=== PATIENT | female | born 1965 | race Caucasian/White ===

== ENCOUNTER 2022-04-09 14:10 | Outpatient (CLI) | payer OTHER | END 2022-04-09 14:23 | disposition home or self-care (01) | LOC: EDBD 14:10 → MAMO-SONO 14:10 | PROVIDERS: ATTEND Internal Medicine Hematology & Oncology | DX: C50.811 Malignant neoplasm of overlapping sites of right female breast (principal) ==

== ENCOUNTER 2022-04-10 06:39 | Outpatient (CLI) | payer OTHER | END 2022-04-10 06:40 | disposition home or self-care (01) | LOC: LAB 06:39 | PROVIDERS: ATTEND Internal Medicine Hematology & Oncology | DX: D50.8 Other iron deficiency anemias (principal); I10 Essential (primary) hypertension; R74.02 Elevation of levels of lactic acid dehydrogenase [LDH]; K76.89 Other specified diseases of liver; E55.9 Vitamin D deficiency, unspecified; E78.2 Mixed hyperlipidemia; E03.8 Other specified hypothyroidism; C50.919 Malignant neoplasm of unspecified site of unspecified female breast; R97.8 Other abnormal tumor markers; R97.0 Elevated carcinoembryonic antigen [CEA]; Z80.3 Family history of malignant neoplasm of breast; Z80.8 Family history of malignant neoplasm of other organs or systems; Z80.7 Family history of other malignant neoplasms of lymphoid, hematopoietic and related tissues; E78.5 Hyperlipidemia, unspecified; E03.9 Hypothyroidism, unspecified; C50.211 Malignant neoplasm of upper-inner quadrant of right female breast; R19.5 Other fecal abnormalities; M54.2 Cervicalgia; M54.51 Vertebrogenic low back pain; M54.6 Pain in thoracic spine; M25.559 Pain in unspecified hip ==

== ENCOUNTER → 2022-04-11 09:59 | Outpatient (CLI) | payer OTHER | END | disposition home or self-care (01) | LOC: LAB 09:59 | PROVIDERS: ATTEND Internal Medicine Hematology & Oncology | DX: D50.8 Other iron deficiency anemias (principal); R19.5 Other fecal abnormalities ==

== ENCOUNTER 2022-05-29 11:38 | Outpatient (CLI) | payer OTHER | END 2022-05-29 11:40 | disposition home or self-care (01) | LOC: LAB 11:38 | PROVIDERS: ATTEND Preventive Medicine Occupational Medicine | DX: U07.1 COVID-19 (principal) ==

== ENCOUNTER 2022-09-06 16:13 | Outpatient (CLI) | payer OTHER | END 2022-09-06 16:14 | disposition home or self-care (01) | LOC: PPH VACUNA 16:13 | PROVIDERS: ATTEND Emergency Medicine Pediatric Emergency Medicine | DX: Z23 Encounter for immunization (principal) ==

== ENCOUNTER 2022-09-09 12:02 | Emergency (ER) | payer OTHER ==
[~2022-09-09] VITALS: Ht 154.9 cm; Wt 71.7 kg
[2022-09-09] MEDS ORDERED: SYNTHROID75 MCG PO (13:04)
[2022-09-09] MEDS ORDERED: COZAAR25 MG PO (13:05)
[2022-09-09] MEDS ORDERED: GLUMETZA500 MG PO (13:06)
[2022-09-09] MEDS ORDERED: SIMVASTATIN40 MG PO (13:06)
== END 2022-09-09 16:57 | disposition home or self-care (01) ==
LOC: ER 12:02
DX: U07.1 COVID-19 (principal); Z88.6 Allergy status to analgesic agent

== ENCOUNTER 2022-12-10 10:57 | Outpatient (CLI) | payer OTHER ==
[~2022-12-10 10:57] MED LIST: COZAAR25 MG PO; GLUMETZA500 MG PO; SIMVASTATIN40 MG PO; SYNTHROID75 MCG PO
== END 2022-12-10 11:02 | disposition home or self-care (01) ==
LOC: RAD 10:57
PROVIDERS: ATTEND Internal Medicine
DX: I10 Essential (primary) hypertension (principal)

== ENCOUNTER 2023-05-06 14:00 | Outpatient (CLI) | payer OTHER | END 2023-05-06 14:25 | disposition home or self-care (01) | LOC: MAMO-SONO 14:00 | PROVIDERS: ATTEND Internal Medicine Hematology & Oncology | DX: C50.911 Malignant neoplasm of unspecified site of right female breast (principal) ==

== ENCOUNTER 2023-10-02 19:28 | Emergency (ER) | payer OTHER ==
[~2023-10-02] VITALS: Ht 152.4 cm; Wt 67.6 kg
[2023-10-03 01:31] LABS: PH,URINE 7.5 (5.0-8.0); URINE APPEARANCE Clear; URINE BILIRRUBIN Negative (NEGATIVE); URINE BLOOD Negative; URINE COLOR Yellow; URINE GLUCOSE Negative (NEGATIVE); URINE LEUKOCYTE Negative; URINE NITRATE Negative; URINE PROTEIN Negative (NEGATIVE); URINE UROBILINOGEN 0.2 E.U./dl
[2023-10-03 01:32] LABS: URINE BACTERIA 25.1 uL (0.0-1933); URINE EPITHELIAL CELLS 2.1 uL (0.0-38.8)
[2023-10-03 01:39] LABS: URINE RBC 1.4 uL (0.0-20.8)
[2023-10-03 02:18] LABS: HEMATOCRIT 40.5 % (36.0-45.00); HEMOGLOBIN 13.4 g/dL (12.0-15.00); MEAN CORPUSCULAR HEMOGLOBIN 28.1 pg (27.00-32.0); PLATELET COUNT 280 K/uL (150-450); RED BLOOD COUNT 4.76 M/uL (4.00-6.00); RED CELL DISTRIBUTION WIDTH 13.2 % (11.5-14.5)
[2023-10-03 02:35] LABS: ALBUMIN 3.9 gm/dL (3.4-5.0); BILIRUBIN TOTAL 0.28 mg/dL (0.3-1.2); CALCIUM 8.8 mg/dL (8.5-10.1); CREATININE SERUM 0.68 mg/dL (0.55-1.02); GFR 88.87; POTASSIUM 3.93 mEq/L (3.5-5.1); TOTAL PROTEIN 7.9 gm/dL (6.4-8.2)
== END 2023-10-03 05:27 ==
LOC: ER 19:28
PROVIDERS: General Practice
DX: I10 Essential (primary) hypertension (principal); R07.9 Chest pain, unspecified; Z88.8 Allergy status to other drugs, medicaments and biological substances

== ENCOUNTER 2023-10-21 06:54 | Outpatient (CLI) | payer OTHER ==
[2023-10-21 07:31] LABS: HEMATOCRIT 37.3 % (36.0-45.00); HEMOGLOBIN 12.5 g/dL (12.0-15.00); MEAN CORPUSCULAR HEMOGLOBIN 28.5 pg (27.00-32.0); MEAN CORPUSCULAR HGB CONC 33.6 g/dl (32.0-36.0); PLATELET COUNT 276 K/uL (150-450); RED BLOOD COUNT 4.39 M/uL (4.00-6.00); RED CELL DISTRIBUTION WIDTH 13.2 % (11.5-14.5)
[2023-10-21 08:22] LABS: ALBUMIN 3.5 gm/dL (3.4-5.0); BILIRUBIN TOTAL 0.43 mg/dL (0.3-1.2); CALCIUM 8.7 mg/dL (8.5-10.1); CHOL HDL RATIO 4.5 (0-5.0); CREATININE SERUM 0.62 mg/dL (0.55-1.02); GFR 98.86; GLOBULINA 3.7 G/DL (2.4-3.5); POTASSIUM 4.22 mEq/L (3.5-5.1); T4 FREE 1.11 NG/ML (0.76-1.46); TOTAL PROTEIN 7.2 gm/dL (6.4-8.2); TSH 0.709 uIU/mL (0.358-3.74)
[2023-10-21 11:42] LABS: PH,URINE 6.5 (5.0-8.0); URINE APPEARANCE Clear; URINE BILIRRUBIN Negative (NEGATIVE); URINE BLOOD Negative; URINE COLOR Yellow; URINE GLUCOSE Negative (NEGATIVE); URINE LEUKOCYTE Negative; URINE NITRATE Negative; URINE PROTEIN Negative (NEGATIVE); URINE UROBILINOGEN 0.2 E.U./dl
[2023-10-21 11:45] LABS: URINE BACTERIA 15.1 uL (0.0-1933); URINE EPITHELIAL CELLS 3.2 uL (0.0-38.8)
[2023-10-21 11:53] LABS: URINE RBC 0.4 uL (0.0-20.8); URINE WBC 1.5 uL (0.0-23.2)
== END 2023-10-21 06:55 | disposition home or self-care (01) ==
LOC: LAB 06:54
PROVIDERS: ATTEND Internal Medicine
DX: E11.65 Type 2 diabetes mellitus with hyperglycemia (principal); E03.8 Other specified hypothyroidism; E78.5 Hyperlipidemia, unspecified; I10 Essential (primary) hypertension; E55.9 Vitamin D deficiency, unspecified; E53.8 Deficiency of other specified B group vitamins; E78.9 Disorder of lipoprotein metabolism, unspecified; N39.0 Urinary tract infection, site not specified; E06.9 Thyroiditis, unspecified; Z88.6 Allergy status to analgesic agent; Z91.011 Allergy to milk products

== ENCOUNTER 2023-10-22 13:58 | Outpatient (CLI) | payer OTHER | END 2023-10-22 14:03 | disposition home or self-care (01) | LOC: SONOGRAMA 13:58 | PROVIDERS: ATTEND Internal Medicine | DX: E04.2 Nontoxic multinodular goiter (principal); Z88.6 Allergy status to analgesic agent; Z91.011 Allergy to milk products ==

== ENCOUNTER → 2023-12-16 08:05 | Outpatient (CLI) | payer OTHER | END | disposition home or self-care (01) | LOC: NUCLEAR 08:00 | PROVIDERS: ATTEND Internal Medicine | DX: I10 Essential (primary) hypertension (principal); R06.00 Dyspnea, unspecified ==

== ENCOUNTER 2023-12-19 13:04 | Outpatient (CLI) | payer OTHER | END 2023-12-19 13:05 | disposition home or self-care (01) | LOC: NUCLEAR 13:04 | PROVIDERS: ATTEND Internal Medicine | DX: M81.0 Age-related osteoporosis without current pathological fracture (principal) ==